=== PATIENT | female | born 1970 | race Caucasian/White ===

== ENCOUNTER 2021-04-01 08:56 | Emergency (ER) | payer BC ==
[2021-04-01 17:20] LABS: SARS-CoV-2 PCR by NAA DETECTED (NotDetected)
== END 2021-04-01 09:55 | disposition home or self-care (01) ==
LOC: MADERS 08:56
DX: U07.1 COVID-19 (principal); R03.0 Elevated blood-pressure reading, without diagnosis of hypertension
CPT/HCPCS: 99283; U0003; U0005

== ENCOUNTER 2022-06-02 08:30 | Emergency (ER) | payer BC ==
[2022-06-02] MEDS ORDERED: Ketorolac Tromethamine 60 MG/2 ML VIAL ONE (09:16)
[2022-06-02] MEDS ORDERED: Hydrochlorothiazide 25 MG TAB ONE (09:16)
== END 2022-06-02 09:59 | disposition home or self-care (01) ==
LOC: MADERS 08:30
DX: S90.32XA Contusion of left foot, initial encounter (principal); M77.32 Calcaneal spur, left foot; I10 Essential (primary) hypertension
CPT/HCPCS: 96372; J1885

== ENCOUNTER 2022-11-04 19:28 | Emergency (ER) | payer BC ==
[2022-11-04] MEDS ORDERED: HYDROcodone/Acetaminophen 5/325 mg Tablet ONE (20:21)
[2022-11-04] MEDS ORDERED: PROPOFOL 20 ML ONE (22:04)
[2022-11-04] MEDS ORDERED: Ketorolac Tromethamine 30 MG/ML VIAL ONE (23:05)
== END 2022-11-04 23:37 | disposition home or self-care (01) ==
LOC: MADERS 19:28
DX: S43.004A Unspecified dislocation of right shoulder joint, initial encounter (principal); I10 Essential (primary) hypertension; W19.XXXA Unspecified fall, initial encounter
CPT/HCPCS: 23650; 96374; 99152; 99153; J1885; J2704